=== PATIENT | female | born 1960 | race Caucasian/White ===

== ENCOUNTER 2017-04-08 17:44 | Emergency (ER) | payer OTHER ==
[~2017-04-08] VITALS: Ht 160 cm; Wt 68.0 kg
[2017-04-08] MEDS ORDERED: LORazepam 2 MG/ML VIAL IM ONE (18:15)
[2017-04-08] MEDS ORDERED: HALOPERIDOL LACTATE 5 MG/ML AMP IM ONE (18:15)
--- NOTE | 2017-04-08 18:16 | PD ---
HPI Chief Complaint: intoxication Time Seen by Provider: 18:04 Travel History International Travel<30 days: No Contact w/Intl Traveler<30days: No Traveled to known affect area: No History of Present Illness HPI 56-year-old female was [place] acted and brought in by police department for evaluation. Patient's daughter states the patient has been drinking all day. Patient's daughter states the patient with threaten suicidal. Patient denies any medical problem. Patient denies any headache. Patient denies any chest pain or shortness of breath. Patient denies abdominal pain. Patient denies any recent injury. Patient denies any illicit drug abuse. Patient admits to alcohol consumption today. Patient denies any suicide ideation. PFSH Past Medical History Seizures: Yes (pt states "petite mal seizures") Social History Alcohol Use: Yes (on occasion) Tobacco Use: Yes (0.5 ppd) Substance Use: Yes Allergies-Medications (Allergen,Severity, Reaction): Coded Allergies: Phenobarbital (Verified Allergy, Severe, 04/08/17) Reported Meds & Prescriptions Reported Meds & Active Scripts Active No Active Prescriptions or Reported Medications Review of Systems General / Constitutional: No: Fever Eyes: No: Visual changes HENT: No: Headaches Cardiovascular: No: Chest Pain or Discomfort Respiratory: No: Shortness of Breath Gastrointestinal: No: Abdominal Pain Genitourinary: No: Dysuria Musculoskeletal: No: Pain Skin: No Rash Neurologic: No: Weakness Psychiatric: No: Depression Endocrine: No: Polydipsia Hematologic/Lymphatic: No: Easy Bruising Physical Exam Narrative GENERAL: Well-nourished, well-developed patient. Patient's combative and belligerent and uncooperative. SKIN: Focused skin assessment warm/dry. HEAD: Normocephalic. EYES: No scleral icterus. No injection or drainage. NECK: Supple, trachea midline. No JVD or lymphadenopathy. CARDIOVASCULAR: Regular rate and rhythm without murmurs, gallops, or rubs. RESPIRATORY: Breath sounds equal bilaterally. No accessory muscle use. GASTROINTESTINAL: Abdomen soft, non-tender, nondistended. MUSCULOSKELETAL: No cyanosis, or edema. BACK: Nontender without obvious deformity. No CVA tenderness. Neurologic exam: Patient's awake and alert oriented to name and date. Patient moves all extremity well. No obvious focal neurological deficit. Data Data Last Documented VS Vital Signs Date Time Temp Pulse Resp B/P Pulse Ox O2 Delivery O2 Flow Rate FiO2 04/08/17 19:24 98.3 91 16 121/63 97 Room Air Orders Haloperidol Inj (Haldol Inj) (04/08/17 18:15) Lorazepam Inj (Ativan Inj) (04/08/17 18:15) Restraints Non-Violent ELLA.Q3H (04/08/17 18:07) Complete Blood Count With Diff (04/08/17 18:16) Comprehensive Metabolic Panel (04/08/17 18:16) Urinalysis - C+S If Indicated (04/08/17 18:16) Psych Screen (04/08/17 18:16) Drug Screen, Random Urine (04/08/17 18:16) Alcohol (Ethanol) (04/08/17 18:16) Labs Laboratory Tests Test 04/08/17 04/08/17 19:05 19:15 White Blood Count 8.3 TH/MM3 Red Blood Count 4.55 MIL/MM3 Hemoglobin 14.2 GM/DL Hematocrit 43.0 % Mean Corpuscular Volume 94.6 FL Mean Corpuscular Hemoglobin 31.2 PG Mean Corpuscular Hemoglobin 33.0 % Concent Red Cell Distribution Width 14.1 % Platelet Count 246 TH/MM3 Mean Platelet Volume 8.6 FL Neutrophils (%) (Auto) 46.4 % Lymphocytes (%) (Auto) 42.8 % Monocytes (%) (Auto) 7.4 % Eosinophils (%) (Auto) 2.5 % Basophils (%) (Auto) 0.9 % Neutrophils # (Auto) 3.9 TH/MM3 Lymphocytes # (Auto) 3.6 TH/MM3 Monocytes # (Auto) 0.6 TH/MM3 Eosinophils # (Auto) 0.2 TH/MM3 Basophils # (Auto) 0.1 TH/MM3 CBC Comment DIFF FINAL Differential Comment Sodium Level 146 MEQ/L Potassium Level 3.4 MEQ/L Chloride Level 114 MEQ/L Carbon Dioxide Level 22.0 MEQ/L Anion Gap 10 MEQ/L Blood Urea Nitrogen 10 MG/DL Creatinine 0.60 MG/DL Estimat Glomerular Filtration 104 ML/MIN Rate Random Glucose 100 MG/DL Calcium Level 8.3 MG/DL Total Bilirubin 0.2 MG/DL Aspartate Amino Transf 20 U/L (AST/SGOT) Alanine Aminotransferase 21 U/L (ALT/SGPT) Alkaline Phosphatase 79 U/L Total Protein 7.4 GM/DL Albumin 3.7 GM/DL Ethyl Alcohol Level 181 MG/DL Urine Color LIGHT-YELLOW Urine Turbidity CLEAR Urine pH 5.5 Urine Specific [place] 1.004 Urine Protein NEG mg/dL Urine Glucose (UA) NEG mg/dL Urine Ketones NEG mg/dL Urine Occult Blood NEG Urine Nitrite NEG Urine Bilirubin NEG Urine Urobilinogen LESS THAN 2.0 MG/DL Urine Leukocyte Esterase TRACE Urine RBC LESS THAN 1 /hpf Urine WBC 1 /hpf Microscopic Urinalysis Comment CULT NOT INDICATED Urine Opiates Screen NEG Urine Barbiturates Screen NEG Urine Amphetamines Screen NEG Urine Benzodiazepines Screen NEG Urine Cocaine Screen NEG Urine Cannabinoids Screen NEG MDM Medical Decision Making Medical Screen Exam Complete: Yes Emergency Medical Condition: Yes Interpretation(s) 4 PM. CBC within normal limit. Sodium 146. Potassium 3.4. Chloride 114. Urine drug screen negative. Alcohol 181. UA is negative. Differential Diagnosis Differential diagnosis including substance-induced mood disorder, psychosis, schizophrenia, suicidal, electrolyte imbalance. Narrative Course 56-year-old female was brought in by police department Bre's act. Patient's daughter states the patient was threatening suicidal. Patient denies any suicide ideation. Patient is uncooperative, belligerent, combative. Soft restraints applied. Haldol 5 mg IM. Ativan 2 mg IM. Diagnosis Primary Impression: Alcohol intoxication Qualified Code: F10.920 - Alcohol intoxication, uncomplicated Additional Impression: Substance induced mood disorder Scripts No Active Prescriptions or Reported Meds Jamel Mustafa MD Apr 08, 2017 18:16
[2017-04-08 18:44] VITALS: BP 132/95; PULSE 118; RESP 25; O2SAT 96
[2017-04-08 18:47] VITALS: BP 132/95; PULSE 118; RESP 16; O2SAT 96
[2017-04-08 19:19] LABS: AUTOMATED NEUTROPHIL # 3.9 TH/MM3 (1.8-7.7); BASOPHIL # 0.1 TH/MM3 (0-0.2); BASOPHIL % 0.9 % (0.0-2.0); EOSINOPHIL # 0.2 TH/MM3 (0-0.4); EOSINOPHIL % 2.5 % (0.0-4.0); HEMO FLAGS DIFF FINAL; LYMPH % 42.8 % (9.0-44.0); LYMPHOCYTE # 3.6 TH/MM3 (1.0-4.8); MEAN CELL VOLUME 94.6 FL (80.0-100.0); MEAN CORPUSCULAR HEMOGLOBIN 31.2 PG (27.0-34.0); MONO % 7.4 % (0.0-8.0); NEUT % 46.4 % (16.0-70.0); PLATELET COUNT 246 TH/MM3 (150-450); RED BLOOD COUNT 4.55 MIL/MM3 (4.00-5.30); RED CELL DISTRIBUTION WIDTH 14.1 % (11.6-17.2); WHITE BLOOD COUNT 8.3 TH/MM3 (4.0-11.0)
[2017-04-08 19:24] VITALS: BP 121/63; PULSE 91; RESP 16; TEMP 98.3; O2SAT 97
[2017-04-08 19:33] LABS: BLOOD, URINE NEG (NEG); GLUCOSE,URINE NEG (NEG); KETONE, URINE NEG (NEG); NITRITE,URINE NEG (NEG); PH, URINE 5.5 (5.0-8.5); URINE COLOR LIGHT-YELLOW (YELLW/STRAW)
[2017-04-08 19:37] LABS: COMMENT (UR) CULT NOT INDICATED; CULTURE IF INDICATED CULT NOT INDICATED
[2017-04-08 19:40] LABS: AMPHETAMINE, URINE NEG (NEG); BARBITURATES, URINE NEG (NEG); COCAINE, URINE NEG (NEG)
[2017-04-08 19:46] LABS: ANION GAP 10 MEQ/L (5-15); AST (GOT) 20 U/L (15-37); BLOOD UREA NITROGEN 10 MG/DL (7-18); CHLORIDE 114 MEQ/L (98-107); GLOMERULAR FILTRATION RATE 104 ML/MIN (>89); POTASSIUM 3.4 MEQ/L (3.5-5.1); SODIUM (NA) 146 MEQ/L (136-145)
[2017-04-08 19:47] LABS: ALT (GPT) 21 U/L (10-53)
[2017-04-08 19:49] LABS: ALKALINE PHOSPHATASE 79 U/L (45-117); TOTAL BILIRUBIN ADULT 0.2 MG/DL (0.2-1.0)
[2017-04-08 21:07] VITALS: BP 117/63; PULSE 82; RESP 16; O2SAT 97
[2017-04-09 01:28] VITALS: BP 102/58
== END 2017-04-09 01:29 ==
LOC: NEPD 17:44
DX: F10.129 Alcohol abuse with intoxication, unspecified (principal); Y90.6 Blood alcohol level of 120-199 mg/100 ml; F39 Unspecified mood [affective] disorder; F17.210 Nicotine dependence, cigarettes, uncomplicated
CPT/HCPCS: 80053; 80307; 81001; 85025; 96372; 99285; J1630; J2060

== ENCOUNTER 2018-05-08 13:18 | Inpatient (IN) ==
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
[2018-05-08 14:35] LABS: Baso # (Auto) 0.1 th/mm3 (0.0-0.2); Baso % (Auto) 0.8 % (0.0-2.0); Eos # (Auto) 0.2 th/mm3 (0.0-0.4); Eos % (Auto) 2.7 % (0.0-4.0); Hematocrit 42.4 % (35.0-46.0); Hemoglobin 14.3 gm/dL (11.6-15.3); Lymph # (Auto) 3.2 th/mm3 (1.0-4.8); Lymph % (Auto) 33.9 % (9.0-44.0); Mean Corpuscular HGB Conc 33.8 % (32.0-36.0); Mean Corpuscular Hemoglobin 31.7 pg (27.0-34.0); Mean Corpuscular Volume 93.8 fL (80.0-100.0); Mean Platelet Volume 8.9 fL (7.0-11.0); Mono # (Auto) 0.7 th/mm3 (0.0-0.9); Mono % (Auto) 7.4 % (0.0-8.0); Neut # (Auto) 5.2 th/mm3 (1.8-7.7); Neut % (Auto) 55.2 % (16.0-70.0); Platelet Count 266 th/mm3 (150-450); Red Blood Count 4.52 mil/mm3 (4.00-5.30); Red Cell Distribution Width 14.3 % (11.6-17.2); White Blood Count 9.3 th/mm3 (4.0-11.0)
[2018-05-08 14:55] LABS: Albumin 3.8 g/dL (3.4-5.0); Anion Gap 12 meq/L (5-15); Aspartate Aminotransferase 11 U/L (15-37); Blood Urea Nitrogen 16 mg/dL (7-18); Calcium 9.2 mg/dL (8.5-10.1); Carbon Dioxide 20.9 meq/L (21.0-32.0); Chloride 109 meq/L (98-107); Glomerular Filtration Rate Greater Than 89 mL/min (>89); Glucose,Random 91 mg/dL (74-106); Potassium 3.6 meq/L (3.5-5.1); Sodium 142 meq/L (136-145)
[2018-05-08 15:06] LABS: Alanine Aminotransferase 15 U/L (10-53); Alkaline Phosphatase 84 U/L (45-117); Total Protein 7.9 g/dL (6.4-8.2)
[2018-05-08] MEDS ORDERED: levETIRAcetam 500 MG Tablet PO ONE (20:58)
[2018-05-08 21:31] LABS: Amphetamine Screen,Urine Neg (Neg); Barbiturate Screen,Urine Neg (Neg); Cannabinoid Screen,Urine Pos (Neg); Cocaine Screen,Urine Neg (Neg); Opiate Screen,Urine Neg (Neg)
[2018-05-09] MEDS ORDERED: LORazepam 0.5 MG Tablet PO PRN (14:08)
[2018-05-09] MEDS ORDERED: LORazepam 1 MG Tablet PO PRN (14:08)
[2018-05-09] MEDS ORDERED: Aluminum/Magnesium/Simethacone Susp 30 ML UDC PO PRN (14:08)
[2018-05-09] MEDS ORDERED: Acetaminophen 325 MG Tablet PO PRN (14:08)
[2018-05-09] MEDS: levETIRAcetam 500 MG Tablet PO SCH (15:37)
--- NOTE | 2018-05-09 16:01 | P.PNIM ---
Subjective Interval history: Consult to [facility] placed for seizures that is chronic and patient is already on Keppra. Discussed with nurse and no active seizures. For chronic medical conditions that are stable, please have the patient f/u with PCP. If there's any acute medical condition, please don't hesitate to reconsult. Thank you. Physical Exam Vital signs: Vital Signs 05/08/18 18:49 05/09/18 06:26 Pulse Rate 80 77 Respiratory Rate 20 16 Blood Pressure 127/80 132/81 Pulse Oximetry 98 97 Intake & Output 05/08/18 05/09/18 05/09/18 18:59 06:59 18:59 Intake Total 500 / 500 Balance 500 / 500 Weight 58.967 kg Intake: Oral 500 / 500 Other: # Voids 6 Results - Labs CBC & Chem 7: 05/08/18 14:00 05/08/18 14:00 Laboratory Results - last 24 hr 05/08/18 15:00 Urine Opiates Screen Neg Ur Barbiturates Screen Neg Ur Amphetamines Screen Neg U Benzodiazepines Scrn Neg Urine Cocaine Screen Neg U Cannabinoids Screen Pos H
[2018-05-10] MEDS: levETIRAcetam 500 MG Tablet PO SCH (01:26)
[2018-05-10 07:08] LABS: Anion Gap 7 meq/L (5-15); Calcium 8.7 mg/dL (8.5-10.1); Carbon Dioxide 23.2 meq/L (21.0-32.0); Chloride 111 meq/L (98-107); Cholesterol 168 mg/dL (120-200); Glomerular Filtration Rate Greater Than 89 mL/min (>89); Glucose,Random 94 mg/dL (74-106); Potassium 4.1 meq/L (3.5-5.1); Sodium 141 meq/L (136-145)
[2018-05-10 07:14] LABS: Blood Urea Nitrogen 20 mg/dL (7-18); Chol/HDL Ratio 3.62 Ratio; HDL Cholesterol 46.4 mg/dL (40.0-60.0); LDL Cholesterol,Calculated 95 mg/dL (0-99); Triglycerides 131 mg/dL (42-150)
[2018-05-10] MEDS ORDERED: Aluminum/Magnesium/Simethacone Susp 30 ML UDC PO PRN (11:13)
[2018-05-10] MEDS ORDERED: LEVETIRACETAM 500 MG PO SCH (11:30)
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
[2018-05-10 16:36] LABS: Hemoglobin A1c 5.6 % (4.3-6.0)
== END 2018-05-10 12:40 | disposition home or self-care (01) ==
LOC: NEPD 13:18 → NEDA 05-09 13:47 → H260 05-09 14:04
PROVIDERS: ADMIT Psychiatry & Neurology Psychiatry; ATTEND Psychiatry & Neurology Psychiatry